=== PATIENT | male | born 1945 | race Caucasian/White ===

== ENCOUNTER 2019-09-17 16:25 | Inpatient (IN) | payer OTHER ==
[~2019-09-17] VITALS: Ht 172.7 cm; Wt 58.6 kg
[2019-09-17 17:09] LABS: PLATELET COUNT 373 x10^3mcL (130-400); RED CELL DISTRIBUTION WIDTH 15.4 % (11.5-14.5)
[2019-09-17 17:18] LABS: CALCIUM 8.7 mg/dL (8.5-10.1); CARBON DIOXIDE 26.7 mmol/L (21-32); CHLORIDE SERUM 103 mmol/L (98-107); CREATININE SERUM 1.5 mg/dL (0.7-1.3); GLUCOSE SERUM 168 mg/dL (74-106); POTASSIUM SERUM 3.6 mmol/L (3.5-5.1); SODIUM SERUM 141 mmol/L (136-145)
[2019-09-17 17:23] LABS: BAND NEUTROPHIL 3 % (0-10); BASOPHIL 0 % (0-2); MONOCYTE 1 % (0-7); SEGMENTED NEUTROPHILS 93 % (37-75); rbc morphology (normal/abnorm) ABNORMAL (NORMAL)
[2019-09-17 17:31] LABS: ALKALINE PHOSPHATASE 158 U/L (46-116); ALT/SGPT 111 U/L (16-63); AST/SGOT 139 U/L (15-37); BILIRUBIN TOTAL 0.4 mg/dL (0.20-1.00); LACTIC DEHYDROGENASE (LDH) 575 U/L (100-190); TOTAL PROTEIN, SERUM 8.2 g/dL (6.4-8.2)
[2019-09-17 17:41] LABS: C REACTIVE PROTEIN 46.1 mg/dL (<=0.9)
[2019-09-17 18:25] LABS: UA SPECIFIC GRAVITY 1.025 (1.005-1.035); microscopic required? YES; urine erythrocyte 3+ (NEGATIVE)
[2019-09-17] MEDS ORDERED: LIPITOR10 MG PO (19:45)
[2019-09-17] MEDS ORDERED: ENULOSE10 GM/151 PO (19:45)
[2019-09-17] MEDS ORDERED: COL-RITE100 M2 PO (19:45)
[2019-09-17] MEDS ORDERED: ZYPREXA7.5 M1 PO (19:46)
[2019-09-17] MEDS ORDERED: ACID REDUCER20 MG PO (19:46)
[2019-09-17] MEDS ORDERED: MELATONIN3 M4 PO (19:46)
[2019-09-17] MEDS ORDERED: MULTIPLE VITAM1 EACH PO (19:46)
[2019-09-17 20:47] LABS: FREE T4 1.35 ng/dL (0.76-1.46); FREE THYROXINE INDEX 2.7 ug/dL (1.4-4.5); T4(THYROXINE) 7.8 ug/dL (4.7-13.3)
[2019-09-17 21:01] LABS: CHOLESTEROL/HDL RATIO 3.7
[2019-09-17 21:09] LABS: T3 TOTAL 0.68 ng/mL
[2019-09-17 23:30] VITALS: BP 145/67
[2019-09-18 03:15] VITALS: BP 154/83
[2019-09-18 05:19] LABS: PLATELET COUNT 327 x10^3mcL (130-400)
[2019-09-18 05:31] LABS: RED CELL DISTRIBUTION WIDTH 15.9 % (11.5-14.5)
[2019-09-18 05:32] LABS: CALCIUM 8.4 mg/dL (8.5-10.1); CARBON DIOXIDE 23.9 mmol/L (21-32); CHLORIDE SERUM 107 mmol/L (98-107); CREATININE SERUM 1.1 mg/dL (0.7-1.3); GLUCOSE SERUM 155 mg/dL (74-106); MAGNESIUM 2.5 mg/dL (1.8-2.4); PHOSPHOROUS 2.7 mg/dL (2.5-4.9); POTASSIUM SERUM 3.7 mmol/L (3.5-5.1); SODIUM SERUM 141 mmol/L (136-145)
[2019-09-18 06:08] LABS: BAND NEUTROPHIL 8 % (0-10); MONOCYTE 4 % (0-7); SEGMENTED NEUTROPHILS 83 % (37-75)
[2019-09-18 06:11] LABS: rbc morphology (normal/abnorm) NORMAL (NORMAL)
[2019-09-18 08:00] VITALS: BP 154/77
[2019-09-18 12:00] VITALS: BP 130/76
[2019-09-18 16:00] VITALS: BP 103/63
[2019-09-18 19:25] VITALS: BP 113/70
[2019-09-19 06:37] VITALS: BP 130/77
[2019-09-19 06:40] LABS: PLATELET COUNT 363 x10^3mcL (130-400)
[2019-09-19 07:33] LABS: ALKALINE PHOSPHATASE 143 U/L (46-116); ALT/SGPT 74 U/L (16-63); AST/SGOT 52 U/L (15-37); BILIRUBIN TOTAL 0.6 mg/dL (0.20-1.00); CARBON DIOXIDE 25.6 mmol/L (21-32); CHLORIDE SERUM 104 mmol/L (98-107); GLUCOSE SERUM 150 mg/dL (74-106); MAGNESIUM 2.3 mg/dL (1.8-2.4); PHOSPHOROUS 2.8 mg/dL (2.5-4.9); POTASSIUM SERUM 3.3 mmol/L (3.5-5.1); SODIUM SERUM 139 mmol/L (136-145); TOTAL PROTEIN, SERUM 6.8 g/dL (6.4-8.2)
[2019-09-19 07:34] LABS: ALBUMIN 1.7 g/dL (3.4-5.0)
[2019-09-19 08:03] LABS: RED CELL DISTRIBUTION WIDTH 15.5 % (11.5-14.5)
[2019-09-19 08:19] LABS: CALCIUM 7.7 mg/dL (8.5-10.1)
[2019-09-19 11:42] VITALS: BP 138/77
[2019-09-19 14:54] LABS: MONOCYTE 6 % (0-7); SEGMENTED NEUTROPHILS 86 % (37-75)
[2019-09-19 14:55] LABS: rbc morphology (normal/abnorm) NORMAL (NORMAL)
[2019-09-19 21:49] VITALS: BP 105/70
[2019-09-19 23:33] VITALS: BP 146/84
[2019-09-20] VITALS (9 sets, daily range): BP systolic 75–156; BP diastolic 48–85; Ht 172.7 cm; Wt 58.6 kg
[2019-09-20 05:37] LABS: ALKALINE PHOSPHATASE 157 U/L (46-116); ALT/SGPT 75 U/L (16-63); AST/SGOT 51 U/L (15-37); BILIRUBIN TOTAL 0.52 mg/dL (0.20-1.00); CALCIUM 8.3 mg/dL (8.5-10.1); CHLORIDE SERUM 104 mmol/L (98-107); CREATININE SERUM 1.3 mg/dL (0.7-1.3); GLUCOSE SERUM 193 mg/dL (74-106); POTASSIUM SERUM 3.7 mmol/L (3.5-5.1); SODIUM SERUM 138 mmol/L (136-145); TOTAL PROTEIN, SERUM 7.2 g/dL (6.4-8.2)
[2019-09-20 05:46] LABS: ALBUMIN 1.9 g/dL (3.4-5.0)
[2019-09-20 05:49] LABS: PLATELET COUNT 398 x10^3mcL (130-400)
[2019-09-20 05:52] LABS: RED CELL DISTRIBUTION WIDTH 15.5 % (11.5-14.5)
[2019-09-20 06:15] LABS: SEGMENTED NEUTROPHILS 95 % (37-75)
[2019-09-20 06:16] LABS: BAND NEUTROPHIL 5 % (0-10); MONOCYTE 2 % (0-7); rbc morphology (normal/abnorm) NORMAL (NORMAL)
[2019-09-21] VITALS (17 sets, daily range): BP systolic 80–138; BP diastolic 43–77
[2019-09-21 06:12] LABS: BASOPHIL % 0.3 % (0-2); PLATELET COUNT 382 x10^3mcL (130-400)
[2019-09-21 06:15] LABS: RED CELL DISTRIBUTION WIDTH 15.4 % (11.5-14.5)
[2019-09-21 06:31] LABS: ALKALINE PHOSPHATASE 117 U/L (46-116); ALT/SGPT 52 U/L (16-63); AST/SGOT 29 U/L (15-37); BILIRUBIN TOTAL 0.34 mg/dL (0.20-1.00); CALCIUM 7.1 mg/dL (8.5-10.1); CARBON DIOXIDE 25.7 mmol/L (21-32); CHLORIDE SERUM 107 mmol/L (98-107); CREATININE SERUM 0.9 mg/dL (0.7-1.3); GLUCOSE SERUM 191 mg/dL (74-106); MAGNESIUM 2.4 mg/dL (1.8-2.4); PHOSPHOROUS 2.8 mg/dL (2.5-4.9); POTASSIUM SERUM 3.4 mmol/L (3.5-5.1); SODIUM SERUM 140 mmol/L (136-145)
[2019-09-21 06:34] LABS: ALBUMIN 1.5 g/dL (3.4-5.0); TOTAL PROTEIN, SERUM 5.8 g/dL (6.4-8.2)
[2019-09-21 06:53] LABS: C REACTIVE PROTEIN 16.5 mg/dL (<=0.9)
[2019-09-22] VITALS (19 sets, daily range): BP systolic 100–137; BP diastolic 53–74
[2019-09-22 05:08] LABS: ALKALINE PHOSPHATASE 130 U/L (46-116); ALT/SGPT 45 U/L (16-63); AST/SGOT 25 U/L (15-37); BILIRUBIN TOTAL 0.26 mg/dL (0.20-1.00); CALCIUM 7.6 mg/dL (8.5-10.1); CARBON DIOXIDE 29.4 mmol/L (21-32); CHLORIDE SERUM 109 mmol/L (98-107); GLUCOSE SERUM 214 mg/dL (74-106); MAGNESIUM 2.5 mg/dL (1.8-2.4); PHOSPHOROUS 2.4 mg/dL (2.5-4.9); POTASSIUM SERUM 4.2 mmol/L (3.5-5.1); SODIUM SERUM 142 mmol/L (136-145)
[2019-09-22 05:09] LABS: ALBUMIN 1.4 g/dL (3.4-5.0); TOTAL PROTEIN, SERUM 5.6 g/dL (6.4-8.2)
[2019-09-22 05:36] LABS: BASOPHIL % 0 % (0-2); PLATELET COUNT 383 x10^3mcL (130-400); RED CELL DISTRIBUTION WIDTH 15.5 % (11.5-14.5)
[2019-09-23] VITALS (17 sets, daily range): BP systolic 103–141; BP diastolic 56–85
[2019-09-23 05:06] LABS: PLATELET COUNT 355 x10^3mcL (130-400)
[2019-09-23 05:16] LABS: BASOPHIL % 0 % (0-2); RED CELL DISTRIBUTION WIDTH 15.7 % (11.5-14.5)
[2019-09-23 05:35] LABS: ALKALINE PHOSPHATASE 129 U/L (46-116); ALT/SGPT 43 U/L (16-63); AST/SGOT 27 U/L (15-37); BILIRUBIN TOTAL 0.25 mg/dL (0.20-1.00); CALCIUM 7.8 mg/dL (8.5-10.1); CARBON DIOXIDE 29.6 mmol/L (21-32); CHLORIDE SERUM 110 mmol/L (98-107); CREATININE SERUM 0.9 mg/dL (0.7-1.3); GLUCOSE SERUM 177 mg/dL (74-106); MAGNESIUM 2.5 mg/dL (1.8-2.4); PHOSPHOROUS 2.7 mg/dL (2.5-4.9); POTASSIUM SERUM 4.2 mmol/L (3.5-5.1); SODIUM SERUM 142 mmol/L (136-145)
[2019-09-23 05:36] LABS: ALBUMIN 1.4 g/dL (3.4-5.0); TOTAL PROTEIN, SERUM 5.5 g/dL (6.4-8.2)
[2019-09-24] VITALS (16 sets, daily range): BP systolic 10–131; BP diastolic 46–69
[2019-09-24 06:33] LABS: ALKALINE PHOSPHATASE 124 U/L (46-116); ALT/SGPT 51 U/L (16-63); AST/SGOT 39 U/L (15-37); BILIRUBIN TOTAL 0.23 mg/dL (0.20-1.00); CALCIUM 7.8 mg/dL (8.5-10.1); CARBON DIOXIDE 28.8 mmol/L (21-32); CHLORIDE SERUM 109 mmol/L (98-107); CREATININE SERUM 0.8 mg/dL (0.7-1.3); GLUCOSE SERUM 131 mg/dL (74-106); POTASSIUM SERUM 4.6 mmol/L (3.5-5.1); SODIUM SERUM 141 mmol/L (136-145)
[2019-09-24 06:34] LABS: ALBUMIN 1.3 g/dL (3.4-5.0); TOTAL PROTEIN, SERUM 5.1 g/dL (6.4-8.2)
[2019-09-24 10:47] LABS: MAGNESIUM 2.1 mg/dL (1.8-2.4); PHOSPHOROUS 3.4 mg/dL (2.5-4.9)
[2019-09-24 11:11] LABS: PLATELET COUNT 341 x10^3mcL (130-400)
[2019-09-24 11:24] LABS: RED CELL DISTRIBUTION WIDTH 15.9 % (11.5-14.5)
[2019-09-24 13:52] LABS: BAND NEUTROPHIL 3 % (0-10); MONOCYTE 2 % (0-7); SEGMENTED NEUTROPHILS 92 % (37-75); burr cell (echinocyte) 1+; rbc morphology (normal/abnorm) ABNORMAL (NORMAL)
[2019-09-24 13:53] LABS: PLATELET MORPHOLOGY LARGE PLATELET SEEN
[2019-09-25] VITALS (16 sets, daily range): BP systolic 106–133; BP diastolic 55–72
[2019-09-25 06:14] LABS: PLATELET COUNT 357 x10^3mcL (130-400)
[2019-09-25 06:51] LABS: MAGNESIUM 2.1 mg/dL (1.8-2.4); PHOSPHOROUS 3.4 mg/dL (2.5-4.9)
[2019-09-25 06:57] LABS: ALKALINE PHOSPHATASE 154 U/L (46-116); ALT/SGPT 56 U/L (16-63); AST/SGOT 37 U/L (15-37); BILIRUBIN TOTAL 0.2 mg/dL (0.20-1.00); CALCIUM 7.5 mg/dL (8.5-10.1); CARBON DIOXIDE 27.1 mmol/L (21-32); CHLORIDE SERUM 106 mmol/L (98-107); GLUCOSE SERUM 212 mg/dL (74-106); POTASSIUM SERUM 4.6 mmol/L (3.5-5.1); SODIUM SERUM 139 mmol/L (136-145)
[2019-09-25 06:58] LABS: ALBUMIN 1.3 g/dL (3.4-5.0); TOTAL PROTEIN, SERUM 5.4 g/dL (6.4-8.2)
[2019-09-25 08:24] LABS: RED CELL DISTRIBUTION WIDTH 15.6 % (11.5-14.5)
[2019-09-25 14:00] LABS: BAND NEUTROPHIL 2 % (0-10); MONOCYTE 2 % (0-7); SEGMENTED NEUTROPHILS 93 % (37-75)
[2019-09-25 14:01] LABS: PLATELET MORPHOLOGY LARGE PLATELET SEEN; burr cell (echinocyte) 2+; rbc morphology (normal/abnorm) ABNORMAL (NORMAL)
[2019-09-26] VITALS (15 sets, daily range): BP systolic 98–126; BP diastolic 54–66
[2019-09-26 05:44] LABS: PLATELET COUNT 333 x10^3mcL (130-400)
[2019-09-26 05:48] LABS: BASOPHIL % 0 % (0-2); RED CELL DISTRIBUTION WIDTH 15.7 % (11.5-14.5)
[2019-09-26 09:15] LABS: CALCIUM 7.8 mg/dL (8.5-10.1); CARBON DIOXIDE 25.2 mmol/L (21-32); CHLORIDE SERUM 106 mmol/L (98-107); GLUCOSE SERUM 301 mg/dL (74-106); POTASSIUM SERUM 5.1 mmol/L (3.5-5.1); SODIUM SERUM 144 mmol/L (136-145)
[2019-09-27] VITALS (17 sets, daily range): BP systolic 97–130; BP diastolic 54–75
[2019-09-27 06:11] LABS: BASOPHIL % 1.3 % (0-2); PLATELET COUNT 272 x10^3mcL (130-400)
[2019-09-27 06:50] LABS: C REACTIVE PROTEIN 8.3 mg/dL (<=0.9); CALCIUM 7.2 mg/dL (8.5-10.1); CARBON DIOXIDE 27.9 mmol/L (21-32); CHLORIDE SERUM 108 mmol/L (98-107); CREATININE SERUM 0.7 mg/dL (0.7-1.3); GLUCOSE SERUM 167 mg/dL (74-106); PHOSPHOROUS 3.2 mg/dL (2.5-4.9); POTASSIUM SERUM 4.2 mmol/L (3.5-5.1); SODIUM SERUM 142 mmol/L (136-145)
[2019-09-27 06:59] LABS: RED CELL DISTRIBUTION WIDTH 15.7 % (11.5-14.5)
[2019-09-28] VITALS (15 sets, daily range): BP systolic 95–127; BP diastolic 56–69
[2019-09-28 06:49] LABS: ALKALINE PHOSPHATASE 147 U/L (46-116); ALT/SGPT 35 U/L (16-63); AST/SGOT 19 U/L (15-37); BILIRUBIN TOTAL 0.22 mg/dL (0.20-1.00); C REACTIVE PROTEIN 4.2 mg/dL (<=0.9); CALCIUM 7.8 mg/dL (8.5-10.1); CARBON DIOXIDE 30.1 mmol/L (21-32); CHLORIDE SERUM 104 mmol/L (98-107); CREATININE SERUM 0.9 mg/dL (0.7-1.3); GLUCOSE SERUM 224 mg/dL (74-106); MAGNESIUM 2.1 mg/dL (1.8-2.4); PHOSPHOROUS 3.4 mg/dL (2.5-4.9); POTASSIUM SERUM 4.8 mmol/L (3.5-5.1); SODIUM SERUM 138 mmol/L (136-145)
[2019-09-28 06:50] LABS: ALBUMIN 1.3 g/dL (3.4-5.0); TOTAL PROTEIN, SERUM 4.8 g/dL (6.4-8.2)
[2019-09-28 07:07] LABS: PLATELET COUNT 211 x10^3mcL (130-400)
[2019-09-28 07:44] LABS: BASOPHIL % 0 % (0-2); RED CELL DISTRIBUTION WIDTH 15.4 % (11.5-14.5)
[2019-09-29] VITALS (15 sets, daily range): BP systolic 101–124; BP diastolic 49–62
[2019-09-29 06:00] LABS: CALCIUM 7.7 mg/dL (8.5-10.1); CARBON DIOXIDE 30.1 mmol/L (21-32); CHLORIDE SERUM 103 mmol/L (98-107); CREATININE SERUM 0.8 mg/dL (0.7-1.3); GLUCOSE SERUM 215 mg/dL (74-106); MAGNESIUM 2.1 mg/dL (1.8-2.4); PHOSPHOROUS 3.4 mg/dL (2.5-4.9); SODIUM SERUM 137 mmol/L (136-145)
[2019-09-29 06:12] LABS: BASOPHIL % 0 % (0-2); PLATELET COUNT 284 x10^3mcL (130-400); RED CELL DISTRIBUTION WIDTH 15.2 % (11.5-14.5)
[2019-09-30] VITALS (16 sets, daily range): BP systolic 79–1113; BP diastolic 38–64
[2019-09-30 06:17] LABS: CALCIUM 7.4 mg/dL (8.5-10.1); CARBON DIOXIDE 34.1 mmol/L (21-32); CHLORIDE SERUM 102 mmol/L (98-107); CREATININE SERUM 0.8 mg/dL (0.7-1.3); GLUCOSE SERUM 145 mg/dL (74-106); PHOSPHOROUS 3.3 mg/dL (2.5-4.9); POTASSIUM SERUM 4.6 mmol/L (3.5-5.1); SODIUM SERUM 137 mmol/L (136-145)
[2019-09-30 06:20] LABS: BASOPHIL % 0 % (0-2); PLATELET COUNT 259 x10^3mcL (130-400); RED CELL DISTRIBUTION WIDTH 15.3 % (11.5-14.5)
[2019-10-01] VITALS (14 sets, daily range): BP systolic 96–142; BP diastolic 34–75
[2019-10-01 00:16] LABS: PLATELET COUNT 319 x10^3mcL (130-400)
[2019-10-01 00:39] LABS: BAND NEUTROPHIL 14 % (0-10); MONOCYTE 1 % (0-7); SEGMENTED NEUTROPHILS 81 % (37-75)
[2019-10-01 00:40] LABS: PATH REVIEW for HEMA YES; rbc morphology (normal/abnorm) NORMAL (NORMAL)
[2019-10-01 00:41] LABS: PLATELET MORPHOLOGY PLATELETS NORMAL
[2019-10-01 01:25] LABS: CALCIUM 10.4 mg/dL (8.5-10.1); CARBON DIOXIDE 27.4 mmol/L (21-32); CHLORIDE SERUM 103 mmol/L (98-107); CREATININE SERUM 1.8 mg/dL (0.7-1.3); GLUCOSE SERUM 153 mg/dL (74-106); SODIUM SERUM 141 mmol/L (136-145)
[2019-10-01 01:28] LABS: POTASSIUM SERUM 6.4 mmol/L (3.5-5.1)
[2019-10-01 05:51] LABS: PLATELET COUNT 314 x10^3mcL (130-400)
[2019-10-01 05:53] LABS: RED CELL DISTRIBUTION WIDTH 16.9 % (11.5-14.5)
[2019-10-01 06:17] LABS: BAND NEUTROPHIL 12 % (0-10); BASOPHIL 0 % (0-2); C REACTIVE PROTEIN 1.4 mg/dL (<=0.9); CALCIUM 8.2 mg/dL (8.5-10.1); CARBON DIOXIDE 20.4 mmol/L (21-32); CHLORIDE SERUM 95 mmol/L (98-107); GLUCOSE SERUM 365 mg/dL (74-106); MAGNESIUM 2.9 mg/dL (1.8-2.4); MONOCYTE 3 % (0-7); POTASSIUM SERUM 5.1 mmol/L (3.5-5.1); SEGMENTED NEUTROPHILS 80 % (37-75); SODIUM SERUM 132 mmol/L (136-145)
[2019-10-01 06:18] LABS: rbc morphology (normal/abnorm) NORMAL (NORMAL)
[2019-10-01 06:38] LABS: PHOSPHOROUS 12.4 mg/dL (2.5-4.9)
[2019-10-01 16:24] LABS: CALCIUM 8.1 mg/dL (8.5-10.1); CARBON DIOXIDE 11.9 mmol/L (21-32); CHLORIDE SERUM 96 mmol/L (98-107); CREATININE SERUM 1.6 mg/dL (0.7-1.3); GLUCOSE SERUM 273 mg/dL (74-106); SODIUM SERUM 129 mmol/L (136-145)
[2019-10-01 16:27] LABS: POTASSIUM SERUM 5.8 mmol/L (3.5-5.1)
[2019-10-02 00:30] VITALS: BP 80/33
== END 2019-10-02 04:15 | disposition expired | DRG 870 ==
LOC: ED 16:25 → IC 20:00 → DU 20:09 → ED 20:09 → IC 22:19 → DU 09-18 22:34 → IC 09-19 22:21
PROVIDERS: Emergency Medicine; Family Medicine; Internal Medicine; ADMIT Student in an Organized Health Care Education/Training Program; ATTEND Student in an Organized Health Care Education/Training Program
PROC: 30233K1 Transfusion of Nonautologous Frozen Plasma into Peripheral Vein, Percutaneous Approach (ICD-10-PCS; 2019-09-19)
PROC: 5A1955Z Respiratory Ventilation, Greater than 96 Consecutive Hours (ICD-10-PCS; principal; 2019-09-20)
PROC: 0BH17EZ Insertion of Endotracheal Airway into Trachea, Via Natural or Artificial Opening (ICD-10-PCS; 2019-09-20)
PROC: 02HV33Z Insertion of Infusion Device into Superior Vena Cava, Percutaneous Approach (ICD-10-PCS; 2019-09-20)
PROC: B548ZZA Ultrasonography of Superior Vena Cava, Guidance (ICD-10-PCS; 2019-09-20)
PROC: 0W9930Z Drainage of Right Pleural Cavity with Drainage Device, Percutaneous Approach (ICD-10-PCS; 2019-10-01)
DX: A41.89 Other specified sepsis (principal); U07.1 COVID-19; J12.89 Other viral pneumonia; E43 Unspecified severe protein-calorie malnutrition; N17.0 Acute kidney failure with tubular necrosis; J96.01 Acute respiratory failure with hypoxia; D68.69 Other thrombophilia; N39.0 Urinary tract infection, site not specified; G93.40 Encephalopathy, unspecified; R65.20 Severe sepsis without septic shock; Y95 Nosocomial condition; E11.9 Type 2 diabetes mellitus without complications; J44.9 Chronic obstructive pulmonary disease, unspecified; E78.5 Hyperlipidemia, unspecified; F20.9 Schizophrenia, unspecified; F41.9 Anxiety disorder, unspecified; D64.9 Anemia, unspecified
CPT/HCPCS: 31500; 36556; 36600; 82962; 83880; 84439; 85060; 85378; 87804; A4628; C1729; C9113; G0378; J0360; J0456; J0696; J1100; J1644; J1650; J1815; J2001; J2060; J2250; J2370; J2405; J2543; J3010; J3370; J3490; J3590; J7030; J7040; J7050; Q0092